=== PATIENT | female | born 1965 | race Caucasian/White ===

== ENCOUNTER 2022-06-28 13:54 | Emergency (ER) | payer OTHER ==
[~2022-06-28] VITALS: Ht 157 cm; Wt 72.5 kg
--- NOTE | 2022-06-28 14:07 | ED Fall/Injury ---
General Chief Complaint: Trauma-Non Activation Stated Complaint: FALL FOREHEAD LAC/NOSE INJURY/RIGHT RIB PAIN Source: patient Exam Limitations: no limitations History of Present Illness Date Seen by Provider: Jun 28, 2022 Time Seen by Provider: 14:00 Initial Comments 56-year-old female presents to the emergency department today after a mechanical fall. She was taking her dog outside on a leash when the dog bolted down the stairs and out the front door, through a gate. She fell down at the level of the front door and was dragged across the yard. She has a hematoma to the right anterior forehead and has a left nosebleed and feels as though she may have broken her nose. She states she has right chest pain near the ribs on the lateral aspect of her right chest wall. This is sharp and stabbing and worse with deep inspiration. No alleviating factors. Did not lose consciousness. She is been ambulatory since the event. No upper or lower extremity weakness numbness or tingling. She is not on any blood thinning medications. No nausea or vomiting. Allergies and Home Medications Allergies Coded Allergies: No Known Drug Allergies (Unverified , 06/28/22) Patient Home Medication List Home Medication List Reviewed: Yes Hydrocodone Bit/Acetaminophen (HYDROcodone/APAP 5 MG/325 MG TAB) 1 Tab Tab, 1 TAB PO Q6H Prescribed by: SOFI VIRGEN MD on 06/28/22 141 Paroxetine HCl (Paxil) 10 Mg Tablet, 10 MG PO, (Reported) Entered as Reported by: FRANCESCO GLEZ on 06/28/22 141 Last Action: New Order Review of Systems Review of Systems Constitutional: no symptoms reported Eyes: No Symptoms Reported Ears, Nose, Mouth, Throat: epistaxis Respiratory: other (Right rib pain) Cardiovascular: no symptoms reported Gastrointestinal: no symptoms reported Genitourinary: no symptoms reported Musculoskeletal: other (Right anterior facial pain) Skin: other (Abrasion to the forehead) Psychiatric/Neurological: Headache Past [id number]-Cvseri Hx Patient Social History Tobacco Use?: No Use of E-Cig and/or Vaping dev: No Substance use?: No Alcohol Use?: No Family Medical History Reviewed Nursing Family Hx No Pertinent Family Hx Physical Exam Vital Signs Vital Signs - First Documented 06/28/22 14:00 Temp 36.6 Pulse 88 Resp 20 B/P (MAP) 180/111 (134) Pulse Ox 96 O2 Delivery Room Air Capillary Refill : Height, Weight, BMI Height: '" Weight: lbs. oz. kg; BMI Method: General Appearance: WD/WN, no apparent distress HEENT: PERRL/EOMI, TMs normal, pharynx normal, other (Mild bleeding from the left nare. There is swelling about the nasal bridge. No obvious deformity.) Neck: non-tender, supple, normal inspection Cardiovascular: regular rate, rhythm, no murmur Respiratory: lungs clear, normal breath sounds, no respiratory distress, no accessory muscle use, other (Tenderness to palpation superior aspect of the right lateral chest wall over ribs 45 area. No crepitus or deformity. There is a small amount of bruising in this area. Equal breath sounds bilaterally.) Gastrointestinal: normal bowel sounds, non tender, soft, no organomegaly, no pulsatile mass Back: normal inspection, no vertebral tenderness Neurologic/Psychiatric: revenue liaison II-XII nml as tested, no motor/sensory deficits, alert, normal mood/affect, oriented x 3 Skin: other (Moderate-sized cephalhematoma in the right anterior forehead. Small abrasion overlying.) Lymphatic: no adenopathy Progress/Results/Core Measures Results/Orders My Orders Orders - SOFI VIRGEN DO Ibuprofen Tablet (Motrin Tablet) (06/28/22 14:15) Dipht,Pertuss(Acell),Tet Adult (Boostrix (06/28/22 14:15) Chest Pa/Lat (2 View) (06/28/22 14:07) Medications Given in ED Current Medications Medications Dose Ordered Sig/Paz Route Start Time Stop Time Status Last Admin Dose Admin Diphtheria/ Tetanus/Acell Pertussis 0.5 ml ONCE ONCE IM 06/28/22 14:15 06/28/22 14:17 DC 06/28/22 14:25 0.5 ML Ibuprofen 600 mg ONCE ONCE PO 06/28/22 14:15 06/28/22 14:17 DC 06/28/22 14:17 600 MG Vital Signs/I&O 06/28/22 14:00 Temp 36.6 Pulse 88 Resp 20 B/P (MAP) 180/111 (134) Pulse Ox 96 O2 Delivery Room Air Departure Communication (Admissions) Patient is hemodynamically stable. She has no neurologic deficits. No indication for head CT as she had no loss of consciousness, not on blood thinning medicines with no neurologic deficits, no nausea or vomiting. She has been ambulatory without difficulty. She does likely have a nasal bridge f racture with no obvious deformity. Epistaxis resolved with pressure alone. She has a small abrasion to right anterior forehead over the area of the cephalhematoma that does not require stitches. Tetanus was updated. Chest x- ray shows no obvious rib fractures however she definitely has rib contusions on the side. Will be discharged home with pain medication, instructions for deep inspiratory exercises, ambulation as tolerated and is much as possible to avoid pneumonia. She states understanding. She was given Motrin here she does not have a ride so we will give her any sedating medicines but she is sent home with hydrocodone for pain control. Counseled on use of narcotic medications. Impression Primary Impression: Epistaxis Additional Impressions: Cephalohematoma Rib pain on right side Disposition: 01 HOME, SELF-CARE Condition: Stable Departure-Patient Inst. Referrals: NO,LOCAL PHYSICIAN (PCP/Family) Primary Care Physician Patient Instructions: Acute Pain, Adult Add. Discharge Instructions: Take the pain medication as prescribed as needed. Do not drive or make important decisions while taking this as it may make you drowsy. You may want to consider stool softener while taking this as well. It is important to take deep breaths. Use Motrin initially and take the prescribed narcotic pain medicine for any additional pain. Get up and walk around frequently. Return to the emergency department immediately if you develop a severe headache, changes in your vision, intractable vomiting, weakness numbness or tingling of your arms or legs, difficulty speaking or facial numbness, tingling. All discharge instructions reviewed with patient and/or family. Voiced understanding. Scripts Hydrocodone Bit/Acetaminophen (HYDROcodone/APAP 5 MG/325 MG TAB) 1 Tab Tab 1 TAB PO Q6H for Pain for 3 Days, #12 TAB Prov: SOFI VIRGEN DO 06/28/22 SOFI VIRGEN DO Jun 28, 2022 14:07
[2022-06-28] MEDS ORDERED: ACHD5005 PO (14:14)
[2022-06-28] MEDS ORDERED: TETANUS,DIPTH,PERTUSS P/F (BOOSTRIX) 0.5 ML VIAL IM ONE (14:15)
[2022-06-28] MEDS ORDERED: IBUPROFEN 600 MG (MOTRIN) TAB PO ONE (14:15)
[2022-06-28] MEDS ORDERED: PARO10TA81 PO (14:16)
--- NOTE | 2022-06-28 14:24 | Diagnostic Imaging Report ---
CHEST PA/LAT (2 VIEW) Indication: Right-sided rib pain after fall Comparison: None available Findings: No pulmonary mass or consolidation. No pleural effusion or pneumothorax. Normal heart size and mediastinal contours. No displaced fracture in the visible right ribs. Impression: No acute cardiopulmonary process. Dictated by: Dictated on workstation # [id number]
[2022-06-28 14:42] VITALS: BP 160/99
== END 2022-06-28 14:42 | disposition home or self-care (01) ==
LOC: ER 13:58
DX: S00.83XA Contusion of other part of head, initial encounter (principal); R04.0 Epistaxis; R07.81 Pleurodynia; Z23 Encounter for immunization; W01.0XXA Fall on same level from slipping, tripping and stumbling without subsequent striking against object, initial encounter; Y93.K1 Activity, walking an animal; Y92.009 Unspecified place in unspecified non-institutional (private) residence as the place of occurrence of the external cause
CPT/HCPCS: 71046; 90715